=== PATIENT | male | born 1965 | race Caucasian/White ===

== ENCOUNTER 2025-04-04 17:00 | Emergency (ER) | payer MEDICAID ==
[~2025-04-04] VITALS: Ht 172.7 cm; Wt 85.0 kg
[2025-04-04 17:04] VITALS: O2SAT 94
[2025-04-04] MEDS: SODIUM CHLORIDE 0.9% 1,000 ML IV ONE (17:24)
[2025-04-04 17:31] LABS: BASOPHILS % 1.5 % (0.0-2.0); EOSINOPHILS % 0.4 % (0.0-5.0); HEMATOCRIT. 45.4 % (42.0-52.0); LYMPHOCYTES % 37.1 % (20.0-50.0); MEAN CORPUSCULAR HGB CONC 33.1 g/dL (31.0-37.0); MEAN CORPUSCULAR VOLUME 87.7 fL (80.0-94.0); MONOCYTES % 7.8 % (2.0-8.0); NEUTROPHILS % 53.2 % (40.0-76.0); PLATELET 334 x1000/uL (130-400); RED BLOOD CELL COUNT 5.17 mill/uL (4.7-6.1); RED CELL DISTRIBUTION WIDTH 13.7 % (11.6-14.6); WHITE BLOOD COUNT 13.3 x1000/uL (4.5-11.0)
[2025-04-04 17:46] LABS: CHLORIDE 107 mEq/L (98-107); POTASSIUM 3.4 mEq/L (3.5-5.1); SODIUM 140 mEq/L (136-145)
[2025-04-04 17:47] LABS: CARBON DIOXIDE 20 mEq/L (21-32)
[2025-04-04 17:48] LABS: CALCIUM 9.3 mg/dL (8.7-10.4)
[2025-04-04 17:52] LABS: CREATININE 1.2 mg/dL (0.6-1.3); GLUCOSE 164 mg/dL (70-105)
[2025-04-04 17:53] LABS: ETHANOL BLOOD 114 mg/dL (<10); UREA NITROGEN BLOOD 11 mg/dL (9-23)
[2025-04-04 17:54] LABS: ALANINE AMINOTRANSFERASE 32 IU/L (10-49); ALBUMIN 4.5 g/dL (3.2-4.8); ASPARTATE AMINOTRANSFERASE 28 IU/L (<34)
[2025-04-04 17:55] LABS: BILIRUBIN DIRECT 0.1 mg/dL (<=3.0); BILIRUBIN TOTAL 0.3 mg/dL (0.1-1.0); PROTEIN TOTAL 7.5 g/dL (6.0-8.3)
[2025-04-04] MEDS ORDERED: NALO4SPR BOTHNSTRLS (19:40)
[2025-04-04 20:00] VITALS: BP 119/74; PULSE 70; RESP 16; TEMP 36.7; O2SAT 96
== END 2025-04-04 20:27 | disposition home or self-care (01) ==
LOC: ER 17:00
DX: T40.2X1A Poisoning by other opioids, accidental (unintentional), initial encounter (principal); I10 Essential (primary) hypertension; F10.90 Alcohol use, unspecified, uncomplicated; Y92.89 Other specified places as the place of occurrence of the external cause; Y90.5 Blood alcohol level of 100-119 mg/100 ml
CPT/HCPCS: 80076; 80048; 80320; 82962; 85025; 36415; 71045; 70450; 93005; 96360; 99285; J7030; Z7610 ×2; A4606; G0480